=== PATIENT | female | born 1935 | race Caucasian/White ===

== ENCOUNTER 2021-12-06 13:50 | Inpatient (IN) | payer MEDICARE, MEDICAID ==
[~2021-12-06] VITALS: Ht 157.5 cm; Wt 85.8 kg
[2021-12-06] MEDS ORDERED: SODIUM CHLORIDE 0.9% 500 ML IV ONE (14:00)
[2021-12-06 14:46] LABS: Basophils # (auto) 0.1 10 ^3/uL (0-0.2); Eosinophils # (auto) 0.1 10 ^3/uL (0-0.8); Eosinophils % (auto) 1.4 % (0.0-7.0); Hemoglobin 11.9 g/dL (12.2-16.2); Nucleated Red Blood Cells % 0.1 %; White Blood Cell 6.3 10^3/uL (4.4-10.8)
[2021-12-06 14:48] LABS: Hematocrit 35.9 % (36.0-46.0); Lymphocytes # (auto) 1.5 10 ^3/uL (0.4-5.4); Mean Corpuscular Hemoglobin 26.6 pg (28.0-32.0); Mean Corpuscular Hgb Conc. 33.1 g/dL (32.0-36.0); Mean Corpuscular Volume 80.3 fL (80.0-100.0); Monocytes # (auto) 0.8 10 ^3/uL (0-1.3); Monocytes % (auto) 13.3 % (0.0-12.0); Neutrophils # (auto) 3.8 10 ^3/uL (1.6-8.6); Neutrophils % (auto) 60.3 % (37.0-80.0); Red Blood Cells 4.47 10^6/uL (4.0-5.20); Red Cell Distribution Width 15.6 % (11.8-14.3)
[2021-12-06 15:06] LABS: Albumin 3.1 g/dL (3.4-5.0); Calcium 8.5 mg/dL (8.5-10.1); Potassium 4.2 mmol/L (3.5-5.1)
[2021-12-06 15:10] LABS: BUN/Creatinine Ratio 23.4; Bilirubin, Total 0.3 mg/dL (0.2-1.0); Total Protein 7.1 g/dL (6.4-8.2)
[2021-12-06 17:08] LABS: Urine Bacteria NONE SEEN /hpf (None Seen); Urine Blood Negative /uL (Negative); Urine Specific Gravity 1.005 (1.001-1.035); Urine WBC 1 /hpf (0 - 5)
[2021-12-06] MEDS ORDERED: cloNIDine HCL 0.1 MG TAB PO ONE (19:15)
[2021-12-07] MEDS ORDERED: HYDROcodone-ACET 5/325MG TAB PO PRN (02:00)
[2021-12-07] MEDS ORDERED: DOCUSATE SOD 100 MG CAP PO PRN (02:00)
[2021-12-07] MEDS ORDERED: ONDANSETRON HCL 4 MG/2 ML VIAL IV PRN (02:00)
[2021-12-07] MEDS ORDERED: SODIUM CHLORIDE 0.9% 1,000 ML IV SCH (02:00)
[2021-12-07] MEDS ORDERED: AZITHROMYCIN 500MG/ 250ML 250 ML IV ONE (02:00)
[2021-12-07] MEDS ORDERED: NITROGLYCERIN 0.4 MG SL TAB SL PRN (03:15)
[2021-12-07] MEDS ORDERED: MORPHINE SULFATE INJ 2 MG/ml SYRG IV PRN (03:15)
[2021-12-07] MEDS: CARBIDOPA W LEVODOPA 25/100mg TABLET PO SCH ×3 (06:00→22:00)
[2021-12-07] MEDS: hydrALAZINE HCL 20 MG/ML VL IV PRN (06:35)
[2021-12-07 06:57] LABS: Eosinophils # (auto) 0.1 10 ^3/uL (0-0.8); Hemoglobin 10.8 g/dL (12.2-16.2); Lymphocytes # (auto) 1.7 10 ^3/uL (0.4-5.4); Mean Corpuscular Hgb Conc. 33.2 g/dL (32.0-36.0); Monocytes # (auto) 0.8 10 ^3/uL (0-1.3)
[2021-12-07 07:00] LABS: Basophils # (auto) 0.1 10 ^3/uL (0-0.2); Basophils % (auto) 0.8 % (0.0-2.0); Eosinophils % (auto) 2.1 % (0.0-7.0); Hematocrit 32.7 % (36.0-46.0); Lymphocytes % (auto) 24.8 % (10.0-50.0); Mean Corpuscular Hemoglobin 26.2 pg (28.0-32.0); Mean Corpuscular Volume 79.1 fL (80.0-100.0); Monocytes % (auto) 11.6 % (0.0-12.0); Neutrophils # (auto) 4.1 10 ^3/uL (1.6-8.6); Neutrophils % (auto) 60.7 % (37.0-80.0); Red Blood Cells 4.13 10^6/uL (4.0-5.20); Red Cell Distribution Width 15.3 % (11.8-14.3); White Blood Cell 6.7 10^3/uL (4.4-10.8)
[2021-12-07 07:20] LABS: Potassium 3.7 mmol/L (3.5-5.1)
[2021-12-07 07:29] LABS: Albumin 2.7 g/dL (3.4-5.0); Bilirubin, Total 0.3 mg/dL (0.2-1.0); Calcium 8.3 mg/dL (8.5-10.1); Total Protein 6.3 g/dL (6.4-8.2)
[2021-12-07] MEDS: MULTIPLE VITAMIN TAB PO SCH (10:00)
[2021-12-07] MEDS ORDERED: ZINC SULFATE 220mg CAP or TAB PO SCH (10:00)
[2021-12-07] MEDS: FAMOTIDINE (10MG/ML) 2ML VL IV SCH ×2 (10:00→22:00)
[2021-12-07] MEDS ORDERED: ASCORBIC ACID 500 MG TAB PO SCH (10:00)
[2021-12-07] MEDS ORDERED: amLODIPine BESYLATE 5 MG TAB PO SCH (10:00)
[2021-12-07] MEDS: ENOXAPARIN SOD 40 MG/0.4 ML SYRINGE SC SCH (10:00)
[2021-12-07] MEDS ORDERED: cefTRIAXone 1GM/50ML D5W 50 ML IV ONE (10:30)
[2021-12-07] MEDS ORDERED: METOCLOPRAMIDE HCL 5MG/ml INJ 2ml VIAL IV PRN (10:30)
[2021-12-07] MEDS ORDERED: DEXTROSE (50%) 50ML SYRG IV PRN (10:30)
[2021-12-07] MEDS ORDERED: FUROSEMIDE 20 MG/2 ML VIAL IV ONE (10:30)
[2021-12-07] MEDS: InsuLIN REG 1unit/0.01ml Soln (100units/ml) SC SCH ×3 (11:30→22:00)
[2021-12-07] MEDS: ACCU-CHEK COMFORT CURVE STRIP VI SCH ×3 (11:44→22:00)
[2021-12-07] MEDS: FUROSEMIDE 20 MG/2 ML VIAL IV SCH (18:54)
[2021-12-07 22:46] VITALS: BP 145/61
[2021-12-07] MEDS ORDERED: CYCL0.05 EACHEYE (23:28)
[2021-12-07] MEDS ORDERED: CARB25TA79 PO (23:28)
[2021-12-07] MEDS ORDERED: PRAV20TA3 PO (23:28)
[2021-12-07] MEDS ORDERED: AMLO-496 PO (23:28)
[2021-12-07] MEDS ORDERED: TRIO1TP TOP (23:28)
[2021-12-07] MEDS ORDERED: ATOR20TA50 PO (23:28)
[2021-12-07] MEDS ORDERED: NAP500T PO (23:28)
[2021-12-07] MEDS ORDERED: [UNRECOGNIZED DRUG - CODE] EACHEYE (23:28)
[2021-12-07] MEDS ORDERED: OMEP-260 PO (23:28)
[2021-12-07] MEDS ORDERED: LOSA-39 PO (23:28)
[2021-12-07 23:30] VITALS: BP 145/65
[2021-12-08 05:00] VITALS: BP 139/59
[2021-12-08] MEDS: CARBIDOPA W LEVODOPA 25/100mg TABLET PO SCH ×3 (06:10→21:53)
[2021-12-08 06:11] LABS: Basophils # (auto) 0 10 ^3/uL (0-0.2); Basophils % (auto) 0.6 % (0.0-2.0); Eosinophils # (auto) 0.1 10 ^3/uL (0-0.8); Hemoglobin 10.8 g/dL (12.2-16.2); Mean Corpuscular Volume 79.8 fL (80.0-100.0)
[2021-12-08] MEDS: FUROSEMIDE 20 MG/2 ML VIAL IV SCH (06:12)
[2021-12-08 06:14] LABS: Hematocrit 32.3 % (36.0-46.0); Lymphocytes # (auto) 1.8 10 ^3/uL (0.4-5.4); Lymphocytes % (auto) 24.5 % (10.0-50.0); Mean Corpuscular Hemoglobin 26.7 pg (28.0-32.0); Mean Corpuscular Hgb Conc. 33.5 g/dL (32.0-36.0); Monocytes # (auto) 0.8 10 ^3/uL (0-1.3); Monocytes % (auto) 11.1 % (0.0-12.0); Neutrophils # (auto) 4.6 10 ^3/uL (1.6-8.6); Neutrophils % (auto) 61.8 % (37.0-80.0); Red Blood Cells 4.05 10^6/uL (4.0-5.20); Red Cell Distribution Width 15.6 % (11.8-14.3); White Blood Cell 7.4 10^3/uL (4.4-10.8)
[2021-12-08] MEDS: InsuLIN REG 1unit/0.01ml Soln (100units/ml) SC SCH ×4 (06:20→22:04)
[2021-12-08] MEDS: ACCU-CHEK COMFORT CURVE STRIP VI SCH ×4 (06:21→22:03)
[2021-12-08 06:34] LABS: Albumin 2.8 g/dL (3.4-5.0); Magnesium 2.2 mg/dL (1.6-2.6); Potassium 3.7 mmol/L (3.5-5.1)
[2021-12-08 06:39] LABS: BUN/Creatinine Ratio 21.7; Bilirubin, Total 0.2 mg/dL (0.2-1.0); Total Protein 6.1 g/dL (6.4-8.2)
[2021-12-08 08:00] VITALS: BP 134/85
[2021-12-08 09:00] VITALS: BP 131/59
[2021-12-08] MEDS: cefTRIAXone 1GM/50ML D5W 50 ML IV SCH (09:07)
[2021-12-08] MEDS: FAMOTIDINE (10MG/ML) 2ML VL IV SCH ×2 (09:07→21:53)
[2021-12-08] MEDS: MULTIPLE VITAMIN TAB PO SCH (09:54)
[2021-12-08] MEDS: ENOXAPARIN SOD 40 MG/0.4 ML SYRINGE SC SCH (09:55)
[2021-12-08] MEDS: AZITHROMYCIN 500MG/ 250ML 250 ML IV SCH (12:18)
[2021-12-08 13:00] VITALS: BP 136/56
[2021-12-08 17:00] VITALS: BP 134/66
[2021-12-08] MEDS: ACETAMINOPHEN 325 MG TAB PO PRN (18:43)
[2021-12-08] MEDS: hydrALAZINE HCL 20 MG/ML VL IV PRN (21:54)
[2021-12-08 21:56] VITALS: BP 159/45
[2021-12-09 05:00] VITALS: BP 142/57
[2021-12-09 05:47] LABS: Basophils # (auto) 0.1 10 ^3/uL (0-0.2); Basophils % (auto) 0.8 % (0.0-2.0); Eosinophils # (auto) 0.2 10 ^3/uL (0-0.8); Eosinophils % (auto) 2.3 % (0.0-7.0); Hemoglobin 10.9 g/dL (12.2-16.2); Lymphocytes # (auto) 1.8 10 ^3/uL (0.4-5.4); Lymphocytes % (auto) 26.4 % (10.0-50.0); Mean Corpuscular Hemoglobin 26.3 pg (28.0-32.0); Mean Corpuscular Volume 79.8 fL (80.0-100.0); Monocytes # (auto) 0.8 10 ^3/uL (0-1.3); Monocytes % (auto) 11.5 % (0.0-12.0); Red Blood Cells 4.13 10^6/uL (4.0-5.20); Red Cell Distribution Width 15.8 % (11.8-14.3); White Blood Cell 6.7 10^3/uL (4.4-10.8)
[2021-12-09] MEDS: CARBIDOPA W LEVODOPA 25/100mg TABLET PO SCH ×3 (06:02→21:51)
[2021-12-09] MEDS: ACCU-CHEK COMFORT CURVE STRIP VI SCH ×4 (06:02→22:11)
[2021-12-09 06:04] LABS: BUN/Creatinine Ratio 21.6; Calcium 8.1 mg/dL (8.5-10.1); Magnesium 2.2 mg/dL (1.6-2.6); Potassium 3.6 mmol/L (3.5-5.1)
[2021-12-09] MEDS: InsuLIN REG 1unit/0.01ml Soln (100units/ml) SC SCH ×4 (06:08→22:12)
[2021-12-09 08:25] VITALS: BP 180/83
[2021-12-09] MEDS: cefTRIAXone 1GM/50ML D5W 50 ML IV SCH (08:36)
[2021-12-09 09:00] VITALS: BP 180/83
[2021-12-09] MEDS ORDERED: LOSARTAN POTASSIUM 50 MG TAB PO SCH (10:00)
[2021-12-09] MEDS ORDERED: amLODIPine BESYLATE 5 MG TAB PO SCH (10:00)
[2021-12-09] MEDS: FAMOTIDINE (10MG/ML) 2ML VL IV SCH (10:26)
[2021-12-09] MEDS: MULTIPLE VITAMIN TAB PO SCH (10:27)
[2021-12-09] MEDS: AZITHROMYCIN 500MG/ 250ML 250 ML IV SCH (10:27)
[2021-12-09] MEDS: ENOXAPARIN SOD 40 MG/0.4 ML SYRINGE SC SCH (10:27)
[2021-12-09] MEDS ORDERED: LOSARTAN POTASSIUM 50 MG TAB PO ONE (10:30)
[2021-12-09] MEDS ORDERED: ARTIFICIAL TEARS 15ml EACHEYE PRN (10:30)
[2021-12-09] MEDS ORDERED: DOCUSATE SOD 100 MG CAP PO ONE (11:00)
[2021-12-09 13:00] VITALS: BP 145/67
[2021-12-09 17:00] VITALS: BP 162/65
[2021-12-09] MEDS: DOCUSATE SOD 100 MG CAP PO SCH (21:47)
[2021-12-09] MEDS: FLORASTOR (S. BOULARDII) 250 MG CAP PO SCH (21:48)
[2021-12-09 22:00] VITALS: BP 153/75
[2021-12-09] MEDS: ATORVASTATIN 20 MG TAB PO SCH (22:00)
[2021-12-09] MEDS: hydrALAZINE HCL 20 MG/ML VL IV PRN (22:17)
[2021-12-10 05:30] VITALS: BP 140/60
[2021-12-10] MEDS: CARBIDOPA W LEVODOPA 25/100mg TABLET PO SCH ×3 (06:06→21:47)
[2021-12-10] MEDS: ACCU-CHEK COMFORT CURVE STRIP VI SCH ×4 (06:07→21:45)
[2021-12-10] MEDS: InsuLIN REG 1unit/0.01ml Soln (100units/ml) SC SCH ×4 (06:08→21:45)
[2021-12-10 06:09] LABS: Eosinophils # (auto) 0 10 ^3/uL (0-0.8); Hemoglobin 11.3 g/dL (12.2-16.2); Mean Corpuscular Hemoglobin 26.8 pg (28.0-32.0); Monocytes # (auto) 0.8 10 ^3/uL (0-1.3); Neutrophils # (auto) 4.1 10 ^3/uL (1.6-8.6)
[2021-12-10 06:11] LABS: Basophils # (auto) 0.1 10 ^3/uL (0-0.2); Basophils % (auto) 0.9 % (0.0-2.0); Eosinophils % (auto) 0.6 % (0.0-7.0); Hematocrit 33.8 % (36.0-46.0); Lymphocytes # (auto) 1.5 10 ^3/uL (0.4-5.4); Mean Corpuscular Hgb Conc. 33.5 g/dL (32.0-36.0); Monocytes % (auto) 12.6 % (0.0-12.0); Neutrophils % (auto) 62.9 % (37.0-80.0); Red Blood Cells 4.23 10^6/uL (4.0-5.20); Red Cell Distribution Width 15.8 % (11.8-14.3); White Blood Cell 6.5 10^3/uL (4.4-10.8)
[2021-12-10 06:19] LABS: Calcium 8.7 mg/dL (8.5-10.1); Potassium 3.7 mmol/L (3.5-5.1)
[2021-12-10 07:45] VITALS: BP 179/79
[2021-12-10] MEDS: cefTRIAXone 1GM/50ML D5W 50 ML IV SCH (08:29)
[2021-12-10 09:00] VITALS: BP 179/79
[2021-12-10] MEDS: AZITHROMYCIN 250 MG TAB PO SCH (09:57)
[2021-12-10] MEDS: DOCUSATE SOD 100 MG CAP PO SCH ×2 (09:57→21:44)
[2021-12-10] MEDS: ENOXAPARIN SOD 40 MG/0.4 ML SYRINGE SC SCH (09:58)
[2021-12-10] MEDS: LOSARTAN POTASSIUM 50 MG TAB PO SCH (09:58)
[2021-12-10] MEDS: MULTIPLE VITAMIN TAB PO SCH (09:58)
[2021-12-10] MEDS: FLORASTOR (S. BOULARDII) 250 MG CAP PO SCH ×2 (09:58→21:45)
[2021-12-10] MEDS ORDERED: hydrALAZINE HCL 25 MG TAB PO ONE (10:45)
[2021-12-10] MEDS ORDERED: NAP500T PO (13:05)
[2021-12-10] MEDS ORDERED: ASPI-543 PO (13:05)
[2021-12-10] MEDS ORDERED: MULT-732 PO (13:05)
[2021-12-10] MEDS ORDERED: CARB-80 PO (13:05)
[2021-12-10] MEDS ORDERED: KETO2AER3 EX (13:05)
[2021-12-10 17:00] VITALS: BP 174/86
[2021-12-10] MEDS ORDERED: SODIUM CHLORIDE 0.9% 1,000 ML IV ONE (18:15)
[2021-12-10] MEDS: hydrALAZINE HCL 25 MG TAB PO SCH (21:28)
[2021-12-10 22:00] VITALS: BP 174/76
[2021-12-10] MEDS: amLODIPine BESYLATE 5 MG TAB PO SCH (22:00)
[2021-12-10] MEDS ORDERED: hydrALAZINE HCL 25 MG TAB PO SCH (22:00)
[2021-12-10 22:25] VITALS: BP 138/68
[2021-12-10] MEDS: ATORVASTATIN 20 MG TAB PO SCH (22:48)
[2021-12-10] MEDS: IPRATROPIUM BROM 0.5 MG/2.5ML INH SOL NEB SCH (23:59)
[2021-12-10] MEDS: ALBUTEROL SULF 2.5 MG/0.5ML(0.5%) NEB SOLN NEB SCH (23:59)
[2021-12-11] MEDS: ACETAMINOPHEN 325 MG TAB PO PRN ×3 (00:07→13:50)
[2021-12-11] MEDS: amLODIPine BESYLATE 5 MG TAB PO SCH (00:20)
[2021-12-11 05:00] VITALS: BP 168/78
[2021-12-11] MEDS: hydrALAZINE HCL 20 MG/ML VL IV PRN (05:38)
[2021-12-11 06:00] LABS: Eosinophils # (auto) 0.1 10 ^3/uL (0-0.8); Hematocrit 33.4 % (36.0-46.0); Lymphocytes # (auto) 1.9 10 ^3/uL (0.4-5.4); Monocytes # (auto) 0.9 10 ^3/uL (0-1.3); Red Cell Distribution Width 15.7 % (11.8-14.3)
[2021-12-11] MEDS ORDERED: FUROSEMIDE 20 MG/2 ML VIAL IV SCH (06:00)
[2021-12-11 06:03] LABS: Basophils # (auto) 0 10 ^3/uL (0-0.2); Basophils % (auto) 0.5 % (0.0-2.0); Eosinophils % (auto) 1.6 % (0.0-7.0); Lymphocytes % (auto) 27.1 % (10.0-50.0); Mean Corpuscular Hemoglobin 26.3 pg (28.0-32.0); Mean Corpuscular Volume 79.7 fL (80.0-100.0); Monocytes % (auto) 12.5 % (0.0-12.0); Neutrophils # (auto) 4.2 10 ^3/uL (1.6-8.6); Neutrophils % (auto) 58.3 % (37.0-80.0); Nucleated Red Blood Cells % 0.1 %; Red Blood Cells 4.19 10^6/uL (4.0-5.20); White Blood Cell 7.2 10^3/uL (4.4-10.8)
[2021-12-11] MEDS: ALBUTEROL SULF 2.5 MG/0.5ML(0.5%) NEB SOLN NEB SCH ×3 (06:15→17:57)
[2021-12-11] MEDS: IPRATROPIUM BROM 0.5 MG/2.5ML INH SOL NEB SCH ×3 (06:15→17:57)
[2021-12-11 06:26] LABS: Albumin 2.7 g/dL (3.4-5.0); Calcium 8.5 mg/dL (8.5-10.1); Magnesium 2.4 mg/dL (1.6-2.6); Potassium 4.1 mmol/L (3.5-5.1)
[2021-12-11 06:31] LABS: BUN/Creatinine Ratio 21.1; Bilirubin, Total 0.3 mg/dL (0.2-1.0); Total Protein 6.4 g/dL (6.4-8.2)
[2021-12-11] MEDS: InsuLIN REG 1unit/0.01ml Soln (100units/ml) SC SCH ×3 (06:37→17:33)
[2021-12-11] MEDS: ACCU-CHEK COMFORT CURVE STRIP VI SCH ×3 (06:37→17:00)
[2021-12-11 09:00] VITALS: BP 125/47
[2021-12-11] MEDS: AZITHROMYCIN 250 MG TAB PO SCH (09:12)
[2021-12-11] MEDS: ENOXAPARIN SOD 40 MG/0.4 ML SYRINGE SC SCH (09:13)
[2021-12-11] MEDS: MULTIPLE VITAMIN TAB PO SCH (09:13)
[2021-12-11] MEDS: LOSARTAN POTASSIUM 50 MG TAB PO SCH (09:13)
[2021-12-11] MEDS: DOCUSATE SOD 100 MG CAP PO SCH (09:14)
[2021-12-11] MEDS: FLORASTOR (S. BOULARDII) 250 MG CAP PO SCH (09:14)
[2021-12-11] MEDS: CARBIDOPA W LEVODOPA 25/100mg TABLET PO SCH (09:14)
[2021-12-11] MEDS: cefTRIAXone 1GM/50ML D5W 50 ML IV SCH (09:15)
[2021-12-11] MEDS: hydrALAZINE HCL 25 MG TAB PO SCH (10:39)
[2021-12-11 13:00] VITALS: BP 139/70
[2021-12-11] MEDS ORDERED: HYDR25TA87 PO (14:43)
[2021-12-11] MEDS ORDERED: CAR25T PO (14:43)
[2021-12-11] MEDS ORDERED: ALBUAER3 IN (14:43)
[2021-12-11] MEDS ORDERED: LEVO500T31 PO (14:43)
[2021-12-11] MEDS ORDERED: LOSA-69 PO (14:43)
[2021-12-11 16:35] VITALS: BP 139/70
[2021-12-11 17:00] VITALS: BP 145/70
== END 2021-12-11 18:05 | disposition home health service (06) | DRG 194 ==
LOC: EDBD 13:50 → ER 13:50 → OVERFLOW 12-07 03:14 → EAST 12-07 22:15
PROVIDERS: ADMIT Nurse Practitioner Family; ATTEND Internal Medicine
DX: J18.9 Pneumonia, unspecified organism (principal); E44.0 Moderate protein-calorie malnutrition; N17.9 Acute kidney failure, unspecified; I50.22 Chronic systolic (congestive) heart failure; I11.0 Hypertensive heart disease with heart failure; E66.9 Obesity, unspecified; G20 Parkinson's disease; E11.9 Type 2 diabetes mellitus without complications; D64.9 Anemia, unspecified; E86.9 Volume depletion, unspecified; G25.0 Essential tremor; E78.5 Hyperlipidemia, unspecified; Z90.49 Acquired absence of other specified parts of digestive tract; Z74.01 Bed confinement status; Z68.34 Body mass index [BMI] 34.0-34.9, adult
CPT/HCPCS: 36415; 70450; 71045; 71250; 80048; 80053; 81001; 82962; 83036; 83735; 83880; 84443; 84484; 85025; 87040; 87278; 93005; 93306; 94640; 96361; 96365; 96367; 96375; 97110; 97163; 97530; G0378; J0696; J1815; J2405; J3490